=== PATIENT | male | born 1995 | race Two or more races ===

== ENCOUNTER 2022-07-28 10:45 | Outpatient (CLI) | payer OTHER ==
[~2022-07-28 10:45] MED LIST: PEPCID40 MG PO; PHENERGAN25 MG PO
== END 2022-07-28 10:47 | disposition home or self-care (01) ==
LOC: MRI 10:45
PROVIDERS: ATTEND Orthopaedic Surgery
DX: M25.561 Pain in right knee (principal)
CPT/HCPCS: 73721